=== PATIENT | female | born 1995 | race Caucasian/White ===

== ENCOUNTER → 2024-04-16 13:16 | Outpatient (REF) | payer OTHER, SELFPAY | LOC: PNTC 13:16 | PROVIDERS: ATTENDING PHYSICIAN Obstetrics & Gynecology | DX: O99.612 Diseases of the digestive system complicating pregnancy, second trimester (principal); O99.419 Diseases of the circulatory system complicating pregnancy, unspecified trimester; O34.219 Maternal care for unspecified type scar from previous cesarean delivery | CPT/HCPCS: 76811 ==

== ENCOUNTER → 2024-06-12 13:30 | Outpatient (REF) | payer OTHER, SELFPAY | LOC: PNTC 13:30 | PROVIDERS: ATTENDING PHYSICIAN Obstetrics & Gynecology | DX: O99.612 Diseases of the digestive system complicating pregnancy, second trimester (principal); Z34.83 Encounter for supervision of other normal pregnancy, third trimester | CPT/HCPCS: 36415; 76816; 86850; 86900; 86901; J2790 ==

== ENCOUNTER → 2024-06-28 13:45 | Outpatient (REF) | payer OTHER, SELFPAY ==
[2024-06-28 13:50] LABS: % Basophils 0.1 % (0-2); % Eosinophils 0.3 % (0-6); % Immature Granulocytes 0.3 % (0-0.5); % Monocytes 3.9 % (1.7-9.3); % Neutrophils 81.4 % (42.2-75.2); Absolute Lymphocytes 1.7 10^3/uL (1.2-3.4); Absolute Monocytes 0.5 10^3/uL (0.1-0.6); Absolute Neutrophils 9.6 10^3/uL (1.4-6.5); Hematocrit 27.6 % (37.0-47.0); Hemoglobin 9.6 g/dL (12.0-16.0); Mean Corp Hgb Conc. 34.8 g/dL (33.0-37.0); Mean Corpuscular Hgb 29.7 pg (27.0-31.0); Mean Corpuscular Volume 85.4 fL (81.0-99.0); Mean Platelet Volume 9.9 fL (7.4-10.4); Platelet Count 185 10^3/uL (130-400); Red Blood Cell Count 3.23 10^6/uL (4.20-5.40); Red Cell Dist. Width 12.3 % (11.5-14.5); White Blood Cell Count 11.8 10^3/uL (4.8-10.8)
[2024-06-28 14:57] LABS: Vitamin D, 25-OH*** 45.5 ng/mL (30-80)
== END ==
LOC: OIDL 13:45
PROVIDERS: ATTENDING PHYSICIAN Nurse Practitioner Primary Care
DX: D50.9 Iron deficiency anemia, unspecified (principal)
CPT/HCPCS: 82306; 85025

== ENCOUNTER → 2024-07-05 16:10 | Outpatient (REF) | payer OTHER, SELFPAY ==
[2024-07-05 14:16] LABS: % Basophils 0.2 % (0-2); % Eosinophils 0.7 % (0-6); % Immature Granulocytes 0.9 % (0-0.5); % Lymphocytes 14.6 % (20.5-51.1); % Monocytes 4.9 % (1.7-9.3); % Neutrophils 78.7 % (42.2-75.2); Absolute Eosinophils 0.1 10^3/uL (0-0.7); Absolute Immature Granulocytes 0.1 10^3/uL (0-0.05); Absolute Lymphocytes 1.7 10^3/uL (1.2-3.4); Absolute Monocytes 0.6 10^3/uL (0.1-0.6); Absolute Neutrophils 9.1 10^3/uL (1.4-6.5); Hematocrit 27.9 % (37.0-47.0); Hemoglobin 9.7 g/dL (12.0-16.0); Mean Corp Hgb Conc. 34.8 g/dL (33.0-37.0); Mean Corpuscular Hgb 30.4 pg (27.0-31.0); Mean Corpuscular Volume 87.5 fL (81.0-99.0); Mean Platelet Volume 9.9 fL (7.4-10.4); Platelet Count 164 10^3/uL (130-400); Red Blood Cell Count 3.19 10^6/uL (4.20-5.40); Red Cell Dist. Width 13.2 % (11.5-14.5); White Blood Cell Count 11.6 10^3/uL (4.8-10.8)
== END ==
LOC: OIDL 16:10
PROVIDERS: ATTENDING PHYSICIAN Nurse Practitioner Primary Care
DX: D50.9 Iron deficiency anemia, unspecified (principal)
CPT/HCPCS: 85025

== ENCOUNTER → 2024-07-12 10:20 | Outpatient (REF) | payer OTHER, SELFPAY | LOC: PNTC 10:20 | PROVIDERS: ATTENDING PHYSICIAN Obstetrics & Gynecology | DX: O99.62 Diseases of the digestive system complicating childbirth (principal) | CPT/HCPCS: 76816 ==

== ENCOUNTER 2024-08-28 06:55 | Inpatient (IN) | payer OTHER, SELFPAY ==
[2024-08-28] MEDS: LR 1000 IV (07:15)
[2024-08-28 07:33] VITALS: BP 102/67; BMI 30.1
[2024-08-28 07:39] LABS: Hematocrit 31.5 % (37.0-47.0); Hemoglobin 11.5 g/dL (12.0-16.0); Mean Corp Hgb Conc. 36.5 g/dL (33.0-37.0); Mean Corpuscular Volume 84.9 fL (81.0-99.0); Mean Platelet Volume 9.8 fL (7.4-10.4); Platelet Count 149 10^3/uL (130-400); Red Blood Cell Count 3.71 10^6/uL (4.20-5.40); Red Cell Dist. Width 14.7 % (11.5-14.5); White Blood Cell Count 12.1 10^3/uL (4.8-10.8)
[2024-08-28] MEDS: BICITRA 30 ML PO (08:35)
[2024-08-28] MEDS: TYLENOL 1000 MG PO (08:35)
[2024-08-28] MEDS: ANCEF 10 IV (09:39)
[2024-08-28] MEDS: PITOCIN 30 UNITS/NSS 500 ML IV (10:45)
[2024-08-28] MEDS: TORADOL 15 MG IV ×3 (12:02→23:47)
[2024-08-29] MEDS: TORADOL 15 MG IV (05:25)
[2024-08-29 05:39] LABS: Hematocrit 26.7 % (37.0-47.0); Hemoglobin 9.7 g/dL (12.0-16.0); Mean Corp Hgb Conc. 36.3 g/dL (33.0-37.0); Mean Corpuscular Hgb 32.1 pg (27.0-31.0); Mean Corpuscular Volume 88.4 fL (81.0-99.0); Mean Platelet Volume 9.9 fL (7.4-10.4); Platelet Count 166 10^3/uL (130-400); Red Blood Cell Count 3.02 10^6/uL (4.20-5.40); Red Cell Dist. Width 14.8 % (11.5-14.5); White Blood Cell Count 14.2 10^3/uL (4.8-10.8)
--- NOTE | 2024-08-29 07:15 | W.PN.ANS.POP ---
Anesthesia Post Operative
- Anesthesia Post Op Note
Vital Signs Stable-See Nursing Note: Yes
Airway Patent: Yes
Adequate Pain Control: Yes
Change in Mental Status: No
Current Postoperative Nausea & Vomiting: No
Anesthesia Complications: No
General Anesthetic Recall: No
Unplanned Admission: No
Post Op Hydration Adequate: Yes
[2024-08-29] MEDS: MOTRIN 600 MG PO ×2 (11:45→17:45)
[2024-08-29] MEDS: SENOKOT-S 1 TABLET PO (11:46)
[2024-08-29] MEDS: TYLENOL 650 MG PO ×2 (11:46→17:45)
[2024-08-29] MEDS: MYLICON 80 MG PO ×2 (14:11→17:45)
[2024-08-29 15:10] LABS: Syphilis/T. pallidum Ab Reflex Negative (Negative)
[2024-08-30] MEDS: TYLENOL 650 MG PO ×2 (00:04→07:24)
[2024-08-30] MEDS: MOTRIN 600 MG PO ×2 (00:04→07:24)
[2024-08-30] MEDS: MYLICON 80 MG PO (07:24)
[2024-08-30] MEDS: SENOKOT-S 1 TABLET PO (07:25)
--- NOTE | 2024-08-30 10:53 | W.DS.TRANS ---
DC Summary - [employer]
-
Discharge Instructions:
Discharge Diagnosis/Procedures delivered via section
Diet No restrictions
Driving Restrictions No driving for 2 weeks
Bathing Restrictions OK to Shower
Instructions:
Stand-Alone Forms: [facility] Delivery
Changes to Home Medications: No
Discharge Medications:
DC Medications w/original date entered in gripNote
Vitamin 1 tab PO DAILY Supplement 08/28/24
Stelara 90 mg SC [id number] Autoimmune Disorder 08/28/24
acetaminophen 325 mg tablet 650 mg (2 x 325 mg) PO Q4HPRN PRN mild pain #7 tabs 08/30/24
ibuprofen 600 mg tablet 600 mg PO Q6HPRN PRN cramps #90 tabs 08/30/24
sennosides 8.6 mg-docusate sodium 50 mg tablet 1 tab PO DAILYPRN PRN constipation #7 tabs 08/30/24
Home Medication Changes
Pending Results: No
--- NOTE | 2024-08-30 10:53 | W.DCSUMMARY ---
Discharge Summary
Discharge Data
Date of Admission: 08/28/24
Date of Discharge: 08/30/24
-
Pending Results: No
Hospital Course
Patient is a 29yo who presented to Labor and Delivery on 08/28 for schedule RLTCS. She has a history of one prior section for Crohn's and declined trial of labor after . Repeat section was uncomplicated. She
delivered at viable female infant. Her postoperative course was uncomplicated. Her POD#1 hemoglobin was 9.7. She was asymptomatic for anemia. She was meeting all and postoperative milestones and desired discharge home on POD#2. She was
stable for discharge home. Discharge instructions and return precautions were discussed and all questions answered. She was instructed to follow up in the office in 2wks for an incision check.
Discharge Plan
-
Patient Disposition: Home (Routine Discharge)
Discharge Diagnosis/Procedures: delivered via section
Condition: Good
Diet: No restrictions
Driving Restrictions: No driving for 2 weeks
Bathing Restrictions: OK to Shower
Stand Alone Forms: [facility] Delivery
Referrals:
Nevaeh Ramesh, DO [Active] - in two weeks
UNKNOWN - PT DOES,NOT KNOW [Family Provider] -
Prescriptions:
New
sennosides-docusate sodium 8.6-50 mg Tablet
1 tab PO DAILYPRN PRN (Reason: constipation) Qty: 7 0RF
ibuprofen 600 mg Tablet
600 mg PO Q6HPRN PRN (Reason: cramps) Qty: 90 0RF
acetaminophen 325 mg Tablet
650 mg PO Q4HPRN PRN (Reason: mild pain) Qty: 7 0RF
Continued
Vitamin
1 tab PO DAILY
Stelara
90 mg SC [id number]
Discharge Orders:
Discharge Patient (As Directed); Ordered 08/30/24
Ordered By: Barbra Garza
Discharge Date and Time
Discharge Date/Time: 08/30/24 10:03
Print Language: HUNGARIAN
== END 2024-08-30 10:03 | disposition home or self-care (01) | DRG 787 ==
LOC: LDRP 06:55
PROVIDERS: ADMITTING PHYSICIAN Obstetrics & Gynecology
PROC: 10D00Z1 Extraction of Products of Conception, Low, Open Approach (ICD-10-PCS; 2024-08-28)
DX: O99.62 Diseases of the digestive system complicating childbirth (principal); K50.90 Crohn's disease, unspecified, without complications; O34.211 Maternal care for low transverse scar from previous cesarean delivery; O99.892 Other specified diseases and conditions complicating childbirth; M04.1 Periodic fever syndromes; Z37.0 Single live birth; Z3A.39 39 weeks gestation of pregnancy; Z79.899 Other long term (current) drug therapy; Z14.8 Genetic carrier of other disease; Z67.41 Type O blood, Rh negative
CPT/HCPCS: 85027; 86780; 86850; 86870; 86900; 86901

== ENCOUNTER 2024-11-23 06:30 | Day surgery (SDC) | payer OTHER, SELFPAY | END 2024-11-23 08:41 | disposition home or self-care (01) | LOC: GI 06:30 | PROVIDERS: ATTENDING PHYSICIAN Internal Medicine Gastroenterology | DX: K50.00 Crohn's disease of small intestine without complications (principal); K64.8 Other hemorrhoids | CPT/HCPCS: 45380; 88305 ==